=== PATIENT | female | born 1955 | race Caucasian/White ===

== ENCOUNTER 2020-03-02 17:46 | Outpatient (CLI) | payer BC, SELFPAY ==
--- NOTE | ~2020-03-02 | MM_ITS ---
EXAMINATION: MM screening michael BI w semaj HISTORY: Screening mammogram TECHNIQUE: Craniocaudal and mediolateral oblique 3-D tomosynthesis images were obtained and synthetic 2-D images were generated. CAD analysis was submitted and interpreted. COMPARISON: 09/17/2018, 09/12/2017, 09/04/2016 bilateral digital screening mammogram examinations BREAST PARENCHYMAL COMPOSITION: There are scattered areas of fibroglandular density. FINDINGS: 5 mm low-density circumscribed opacity is noted anteriorly in the upper outer left breast ( craniocaudal Tomosynthesis image 29/44; MLO Tomosynthesis image 17/45). Diagnostic left mammogram and targeted upper outer quadrant left breast ultrasound examination is recommended. Otherwise there is no evidence of suspicious mass, calcification, or architectural distortion to sugg est malignancy in either breast. There has been no suspicious interval change. IMPRESSION: 1. 5 mm mass in the upper outer quadrant of left breast anteriorly. 2. Diagnostic left mammogram and left upper outer quadrant breast ultrasound examination are recommen ded BI-RADS Category 0: Incomplete: Needs additional imaging evaluation. Reviewed, dictated and finalized at location A. IMPRESSION: 1. 5 mm mass in the upper outer quadrant of left breast anteriorly. 2. Diagnostic left mammogram and left upper outer quadrant breast ultrasound ex amination are recommended BI-RADS Category 0: Incomplete: Needs additional imaging evaluation.
== END 2020-03-02 17:47 | disposition home or self-care (01) ==
LOC: ANHIMG 17:49
PROVIDERS: PCP Family Medicine Sports Medicine; Visit Provider Obstetrics & Gynecology
DX: Z12.31 Encounter for screening mammogram for malignant neoplasm of breast (principal)
CPT/HCPCS: 77063; 77067

== ENCOUNTER 2020-03-12 02:35 | Outpatient (CLI) | payer BC, SELFPAY ==
[2020-03-12 18:02] LABS: SARS-CoV-2 RNA PCR Negative
== END 2020-03-12 02:36 | disposition home or self-care (01) ==
LOC: ANHCOVIDDT 02:35
PROVIDERS: PCP Family Medicine Sports Medicine; Visit Provider Internal Medicine Gastroenterology
DX: Z01.812 Encounter for preprocedural laboratory examination (principal); Z20.828 Contact with and (suspected) exposure to other viral communicable diseases
CPT/HCPCS: 87635; C9803; U0003

== ENCOUNTER 2020-03-15 01:47 | Day surgery (SDC) | payer BC, SELFPAY ==
[2020-03-04 10:33] VITALS: BMI 23.6
[2020-03-15 07:14] VITALS: BP 102/67; PULSE 63; RESP 14; TEMP 36.5; O2SAT 100; BMI 23.6
[2020-03-15] MEDS: LACTATED RINGERS 1,000 ML 150 ML IV CONT (07:23)
--- NOTE | 2020-03-15 07:59 | WPDANESEPPF ---
Anes - Initial Pre Proc Eval Procedure: Operation Date: 03/15/20 08:30 Proposed Procedures p Colonoscopy - Broderick Méndez MD Date/Time: 03/15/20 07:59 Surgeon: Broderick Méndez MD Pre Op Diagnosis: Change In Bowel Habits Patient Data Age: 64 Gender: F Height: 1.52 m Weight: 54.8 kg Last Vital Signs Temp 36.5 C 03/15/20 07:14 Pulse 63 03/15/20 07:14 Resp 14 03/15/20 07:14 BP 102/67 03/15/20 07:14 Pulse Ox 100 03/15/20 07:14 Allergies Allergy/AdvReac Type Severity Reaction Status Date / Time morphine Allergy Unknown Nausea and Verified 03/15/20 07:05 Vomiting sulfanilamide Allergy Unknown Rash Verified 03/15/20 07:05 Penicillins Allergy Rash Verified 03/15/20 07:05 Sulfa (Sulfonamide AdvReac Unknown NAUSEA/VOMI Verified 03/15/20 07:05 Antibiotics) TING Home Medications Medication Instructions Recorded Confirmed Type Bifidobacterium infantis [Align] 4 mg PO DAILY 03/04/20 03/15/20 History fluticasone propionate 50 mcg INTRANASAL DAILY PRN 03/04/20 03/15/20 History guar gum [Benefiber (guar gum)] 1 tbsp PO DAILY 03/04/20 03/15/20 History multivitamin 1 tablet PO DAILY 03/04/20 03/15/20 History Patient hx anesthesia problems: none Family hx anesthesia problems: none PMFSH Family History Family History (Updated 12/10/15 @ 23:19 by DOCTOR UNKNOWN) Father Hypertension Family history of Parkinson's disease Mother Carcinoma of colon Family history of diabetes mellitus in first degree relative Family history of malignant neoplasm of uterus Sibling Family history of heart disease in male family member before age 55 Other Family history of allergic disorder Social History Social History Smoking packs per day: 1.5 Smoking cigarettes per day: 30.0 Years smoked: 30 Smoking pack-years: 45.00 Smoking status: Former smoker Tobacco type: cigarettes Alcohol intake: current Drinks per week: 7 Living arrangements: alone Gender identity (if verbalized by the patient): Female Spiritual care concerns: No Anes - Eval Final PreProcedure Day of Procedure 03/15/20 07:59 Patient weight: normal Heart: regular rate and rhythm Lungs: clear to auscultation and normal air movement Airway: Mallampati scale Neurological: alert and oriented Last oral intake: >/= 8 hours ASA classification: I Emergent: no Anesthetic plan: proceed Anesthesia type and monitoring: general GIVS Informed Consent: The patient's anesthetic plan and its attendant risks and benefits were discussed with the patient/family/POA. Questions were solicited and answers provided to the satisfaction of the patient/family/POA.
--- NOTE | 2020-03-15 08:08 | WPDGICN ---
Assessment and Plan Assessment and plan (1) Encounter for diagnostic colonoscopy due to change in bowel habits: Code(s): R19.4 - Change in bowel habit Status: Acute (2) Constipation: Code(s): K59.00 - Constipation, unspecified Status: Acute Assessment and Plan: Constipation appears to be on the basis of irritable bowel syndrome. Because of recent change in bowel habits colonoscopy will be performed. High fiber supplements such as Benefiber is encouraged. She may need to take MiraLax or milk of magnesia as needed to assist with bowel habits. Further recommendations will be given after endoscopy. GI Consult Note Consult date/time: 03/15/20 08:08 HPI: Iliana Gallardo is a 64 year old female I am asked to see at the request of Dr Garcia. patient reports a change in bowel habits over the last 2 months with increasing constipation. Bowel habits have changed so that they are less than 2 times a week. She previously has taken Benefiber and align probiotic with which helped her bowel habits. These have been of no benefit recently. She occasionally will supplement this with MiraLax as needed. Family history is noncontributory. Patient denies any blood in her stools. Her last colonoscopy was in 2011. Review of Systems Review of Systems: All systems reviewed & are unremarkable except as noted in HPI and below PMFSH Family History Family History (Updated 12/10/15 @ 23:19 by DOCTOR UNKNOWN) Father Hypertension Family history of Parkinson's disease Mother Carcinoma of colon Family history of diabetes mellitus in first degree relative Family history of malignant neoplasm of uterus Sibling Family history of heart disease in male family member before age 55 Other Family history of allergic disorder Social History Social History Smoking packs per day: 1.5 Smoking cigarettes per day: 30.0 Years smoked: 30 Smoking pack-years: 45.00 Smoking status: Former smoker Tobacco type: cigarettes Alcohol intake: current Drinks per week: 7 Living arrangements: alone Gender identity (if verbalized by the patient): Female Spiritual care concerns: No Meds Home Medications and Allergies Home Medications Medication Instructions Recorded Confirmed Type Bifidobacterium infantis [Align] 4 mg PO DAILY 03/04/20 03/15/20 History fluticasone propionate 50 mcg INTRANASAL DAILY PRN 03/04/20 03/15/20 History guar gum [Benefiber (guar gum)] 1 tbsp PO DAILY 03/04/20 03/15/20 History multivitamin 1 tablet PO DAILY 03/04/20 03/15/20 History Allergies Allergy/AdvReac Type Severity Reaction Status Date / Time morphine Allergy Unknown Nausea and Verified 03/15/20 07:05 Vomiting sulfanilamide Allergy Unknown Rash Verified 03/15/20 07:05 Penicillins Allergy Rash Verified 03/15/20 07:05 Sulfa (Sulfonamide AdvReac Unknown NAUSEA/VOMI Verified 03/15/20 07:05 Antibiotics) TING Vital Signs Vital Signs - 24 hr 03/15/20 07:14 Temperature 97.7 F Pulse Rate 63 Respiratory Rate 14 Blood Pressure 102/67 Pulse Oximetry 100 Exam Narrative: Exam Narrative: Physical exam reveals patient to be alert. Vital signs stable. HEENT exam unremarkable. Lungs are clear to auscultation and percussion. Heart is without murmur or extra sounds. Abdominal exam bowel sounds are present soft nontender with no hepatosplenomegaly. Digital external rectal exam is normal.
[2020-03-15 08:58] VITALS: BP 89/55; PULSE 71; RESP 20; O2SAT 97
[2020-03-15 09:08] VITALS: BP 91/59; PULSE 71; RESP 22; O2SAT 97
[2020-03-15 09:18] VITALS: BP 95/55; PULSE 63; RESP 16; O2SAT 95
== END 2020-03-15 09:27 | disposition home or self-care (01) ==
PROVIDERS: PCP Family Medicine Sports Medicine; Visit Provider Internal Medicine Gastroenterology
PROC: 0DJD8ZZ Inspection of Lower Intestinal Tract, Via Natural or Artificial Opening Endoscopic (ICD-10-PCS; CPT 45378; principal; 2020-03-15 08:30)
DX: K59.00 Constipation, unspecified (principal); K64.8 Other hemorrhoids; Z87.891 Personal history of nicotine dependence
CPT/HCPCS: 45378; J2704; J7120

== ENCOUNTER 2020-03-22 11:47 | Outpatient (CLI) | payer BC, SELFPAY ==
--- NOTE | ~2020-03-22 | MMUS_ITS ---
EXAMINATION: MM diagnostic mammo unilat LT, US breast LT limited HISTORY: Left breast mass TECHNIQUE: Additional 3-D tomosynthesis images of the left breast were performed and synthetic 2-D im ages were generated. CAD analysis was submitted and interpreted. High resolution limited left breast ultrasound was performed. COMPARISON: 03/02/2020, 09/17/2018, 09/12/2017, 09/04/2016 FINDINGS: MAMMOGRAPHIC FINDINGS: With spot compression, the 6 mm oval, obscured, equal density left breast mass at the 1:00 location 4 cm from the nipple described on recent screening mammogram has an appearance similar to prior mammog donnie. No suspicious calcification or architectural distortion are identified. ULTRASOUND: There is a 6 mm cyst at the 12:00 location 5 cm from the nipple corresponding to the mammographic fin ding in question. Smaller complex cysts are also noted in the upper outer quadrant of the breast. IMPRESSION: 1. No mammographic or sonographic evidence of malignancy. 2. Recommend routine screening mammography in one year. BI-RADS Category 2: Benign finding(s). Reviewed, dictated and finalized at location A. SION CONTROLLER IMPRESSION: 1. No mammographic or sonographic evidence of malignancy. 2. Recommend routine screening mammography in one year. BI-RADS Category 2: Benign finding(s).
== END 2020-03-22 11:48 | disposition home or self-care (01) ==
PROVIDERS: PCP Family Medicine Sports Medicine; Visit Provider Obstetrics & Gynecology
DX: R92.8 Other abnormal and inconclusive findings on diagnostic imaging of breast (principal)
CPT/HCPCS: 76642; 77065

== ENCOUNTER 2021-03-16 13:35 | Outpatient (CLI) | payer BC, SELFPAY ==
--- NOTE | ~2021-03-16 | MM_ITS ---
EXAMINATION: MM screening michael BI w semaj HISTORY: Screening TECHNIQUE: Craniocaudal and mediolateral oblique 3-D tomosynthesis images were obtained and synthetic 2-D images were generated. CAD analysis was submitted and interpreted. COMPARISON: Comparison to multiple prior studies sequentially, with oldest reviewed study dated 08/23. BREAST PARENCHYMAL COMPOSITION: There are scattered areas of fibroglandular density. FINDINGS: There is no evidence of suspicious mass, calcification, or architectural distortion to sugg est malignancy in either breast. There has been no suspicious interval change. IMPRESSION: 1. No mammographic evidence of malignancy. 2. Recommend routine screening mammography in one year. BI-RADS Category 1: Negative Reviewed, dictated and finalized at location A.
== END 2021-03-16 13:36 | disposition home or self-care (01) ==
LOC: ANHIMG 13:36
PROVIDERS: PCP Family Medicine Sports Medicine; Visit Provider Obstetrics & Gynecology
DX: Z12.31 Encounter for screening mammogram for malignant neoplasm of breast (principal)
CPT/HCPCS: 77063; 77067

== ENCOUNTER 2022-05-11 15:32 | Outpatient (CLI) | payer BC, SELFPAY ==
--- NOTE | ~2022-05-11 | MM_ITS ---
EXAMINATION: MM screening michael BI w semaj HISTORY: Screening mammogram TECHNIQUE: Craniocaudal and mediolateral oblique 3-D tomosynthesis images were obtained and synthetic 2-D images were generated. CAD analysis was submitted and interpreted. COMPARISON: 04/12/2021 bilateral screening mammogram 04/01/2020 diagnostic left mammogram and limited left breast ultrasound examination BREAST PARENCHYMAL COMPOSITION: There are scattered areas of fibroglandular density. FINDINGS: There is no evidence of suspicious mass, calcification, or architectural distortion to sugg est malignancy in either breast. There has been no suspicious interval change. IMPRESSION: 1. No mammographic evidence of malignancy. 2. Recommend routine screening mammography in one year. BI-RADS Category 1: Negative Reviewed, dictated and finalized at location A. MOCOUPLE TESTER
== END 2022-05-11 15:33 | disposition home or self-care (01) ==
LOC: ANHIMG 15:33
PROVIDERS: PCP Family Medicine Sports Medicine; Visit Provider Obstetrics & Gynecology
DX: Z12.31 Encounter for screening mammogram for malignant neoplasm of breast (principal)
CPT/HCPCS: 77063; 77067

== ENCOUNTER 2023-07-11 16:25 | Outpatient (CLI) | payer MEDICARE, OTHER, SELFPAY ==
--- NOTE | ~2023-07-11 | MM_ITS ---
EXAMINATION: MM screening michael BI w semaj HISTORY: Screening TECHNIQUE: Craniocaudal and mediolateral oblique 3-D tomosynthesis images were obtained and synthetic 2-D images were generated. CAD analysis was submitted and interpreted. COMPARISON: Comparison to multiple prior studies sequentially, with oldest reviewed study dated 06/2017. BREAST PARENCHYMAL COMPOSITION: Not dense: There are scattered areas of fibroglandular density. FINDINGS: There is no evidence of suspicious mass, calcification, or architectural distortion to sugg est malignancy in either breast. There has been no suspicious interval change. IMPRESSION: 1. No mammographic evidence of malignancy. 2. Recommend routine screening mammography in one year. BI-RADS Category 1: Negative Reviewed, dictated and finalized at location A. ESCENT COORDINATOR
== END 2023-07-11 16:26 | disposition home or self-care (01) ==
LOC: ANHIMG 16:43
PROVIDERS: PCP Family Medicine; Visit Provider Obstetrics & Gynecology
DX: Z12.31 Encounter for screening mammogram for malignant neoplasm of breast (principal)
CPT/HCPCS: 77063; 77067

== ENCOUNTER 2023-10-02 07:52 | Outpatient (CLI) | payer MEDICARE, OTHER, SELFPAY ==
--- NOTE | ~2023-10-02 | DEXA_ITS ---
Bone Density Report Name: ANUJ JORDAN Age: 67 Sex: Female Ethnicity: White Date of : 1955 Indication: postmenopausal; screening for osteoporosis; hysterectomy; Referring Provider: JUAN VENTURA Study: Bone densitometry was performed. Exam Date: October 02, 2023 Accession number: [id number] Bone Density: Region BMD T-score Z-score Classification AP Spine(L1-L4) 0.824 -2.0 -0.2 Osteopenia Femoral Neck (Left) 0.567 -2.5 -1.0 Osteoporosis Total Hip (Left) 0.739 -1.7 -0.4 Osteopenia Femoral Neck (Right) 0.563 -2.6 -1.0 Osteoporosis Total Hip (Right) 0.700 -2.0 -0.7 Osteopenia Total Hip Mean 0.720 -1.9 -0.6 Osteopenia World Health Organization criteria for BMD impression classify patients as: Normal (T-score at or above -1.0), Osteopenia (T-score between -1.0 and -2.5), or Osteoporosis (T-score at or below -2.5). 10-year Fracture Risk: FRAX not reported because: Some T-score for Spine Total or Hip Total or Femoral Neck at or below -2.5 Treated for osteoporosis Clinical Information Provided by Patient: Is being treated for osteoporosis Has used the following medications: Fosamax (i.e. alendronate), Vitamin D, Calcium Has the following medical conditions: Hysterectomy Patient maximum height was 61.5 No regular weight bearing exercise Drinks caffeinated beverages Onset of menses at age 15 Number of children 2 Impression: The patient has osteoporosis, based on the Right Femoral Neck T-score. Discussion: It is important to ask patients whether they are taking their medications and to encourage continued and appropriate compliance with their osteoporosis therapies to reduce fracture risk. It is also important to review their risk factors and encourage appropriate calcium and vitamin D intakes, exercise, fall prevention and other lifestyle measures. Follow-Up: Consider a repeat BMD and Vertebral Fracture Assessment (VFA) exam in 2 years or sooner if medically necessary, to reassess this patient's status. Reported by: TERENCE on 10/02/2023 8:27:00 AM. Reviewed, dictated and finalized at location AEarl ZAVALA
== END 2023-10-02 07:53 | disposition home or self-care (01) ==
PROVIDERS: PCP Family Medicine; Visit Provider Obstetrics & Gynecology
DX: Z13.820 Encounter for screening for osteoporosis (principal); M81.0 Age-related osteoporosis without current pathological fracture; Z78.0 Asymptomatic menopausal state
CPT/HCPCS: 77080

== ENCOUNTER 2024-07-14 15:17 | Outpatient (CLI) | payer MEDICARE, OTHER, SELFPAY | END 2024-07-14 15:18 | disposition home or self-care (01) | LOC: ANHIMG 15:22 | PROVIDERS: PCP Family Medicine; Visit Provider Obstetrics & Gynecology | DX: Z12.31 Encounter for screening mammogram for malignant neoplasm of breast (principal) | CPT/HCPCS: 77063; 77067 ==

== ENCOUNTER 2024-09-04 05:41 | Emergency (ER) | payer MEDICARE, OTHER, SELFPAY ==
--- NOTE | ~2024-09-04 | XR_ITS ---
AP view of the pelvis Clinical history: Pain Findings: No acute fracture or dislocation is seen. Osseous alignment is anatomic. Bilateral hip and SI joint spaces are preserved. Soft tissues are unremarkable. Impression: No significant abnormality is seen. Reviewed, dictated and finalized at location M. Impression: No significant abnormality is seen.
--- NOTE | ~2024-09-04 | CT_ITS ---
Noncontrast CT scan of the lumbar spine CLINICAL HISTORY: Back pain TECHNIQUE: Axial noncontrast imaging of the lumbar spine was performed. Sagittal and coronal reformat alissa images were constructed. Dose reduction technique was used on this scan by utilizing automated ex posure control and iterative reconstruction technique. The dose-length product (DLP) was 519.11 mGy-c m. FINDINGS: No acute fracture or sublocation identified. Vertebral bodies maintain normal height and li ne. At L1-L2, there is no disc bulge. There is minimal facet arthropathy. No central canal stenosis or de finite neural foraminal narrowing. At L2-L3, there is no disc bulge or herniation. No spinal canal stenosis or definite neural foraminal narrowing. At L3-L4, there is no disc bulge or herniation. No spinal canal stenosis or neural foraminal narrowin g. At L4-L5, there is minimal disc bulge with moderate facet arthropathy. No central canal stenosis or n eural foraminal narrowing. At L5-S1, there is no disc bulge or herniation. No spinal canal stenosis or definite neural foraminal narrowing. Paravertebral soft tissues are unremarkable. Impression: No acute abnormality. Minimal degenerative change. Reviewed, dictated and finalized at location . Impression: No acute abnormality. Minimal degenerative change.
--- OUTSIDE RECORDS SUMMARY | 2024-09-04 05:44 | XMS_ITS | Clinical Summary ---
Author Organization [facility] Address [address] [place] [address] Care Team Providers Care Contact Worker Name Role Phone Jamey Reid MD Primary Care Provider [phone] Source Comments [facility],non-owned Affiliates and Associated Physician Practices is amultiple site organization consisting of ambulatory clinics and hospital sitesin [place], [place], [place] and [place]. This disclosure is being madepursuant to the Care Everywhere program and may not contain all information available regarding this patient. 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 Gender Identity Not on file Sexual Orientation Not on file Plan of Treatment Health Maintenance Due Date Last Done Comments BONE DENSITY TESTING 1955 COLOGUARD (AGES 45-75) - COL ON CA SCREENING 1955 COLON MONITORING 1955 COLONOSCOPY - COLON CA SCREENING 1955 CT COLONOGRAPHY - COLON CA SCREENING 1955 Colorectal Cancer Screening 1955 FIT - COLON CA SCREENING 1955 FLEX SIG - COLON CA SCREENING 1955 LIPID TESTING 1955 MAMMOGRAM 1955 MEDICARE AWV 12 MONTHS 1955 HEPATITIS C SCREENING 10/01/1975 DTAP/TDAP/TD VACCINES (1 - Tdap) 1976 PNEUMOCOCCAL VACCINE 50+ (1 of 1 - PCV) 10/06/2007 ZOSTER VACCINE (1 of 2) 10/06/2007 COVID-19 VACCINE ( - 2023-2 5 season) 2024 DEPRESSION SCREENING 05/14/2024 INFLUENZA VACCINE (Season Ended) 2025 Respiratory Syncytial Virus (RSV) Vaccine Pt: or over 60 yrs (1 - 1-dose 75+ series) 2032 HEPATITIS B VACCINE Aged Out No longe r eligible based on patient's age to complete this topic HIB VACCINE Aged Out No longer eligi ble based on patient's age to complete this topic HPV VACCINE Aged Out No longer eligi ble based on patient's age to complete this topic MENINGOCOCCAL (Group B) VACC INE SHARED DECISION-MAKING Aged Out No longer eligibl e based on patient's age to complete this topic MENINGOCOCCAL GROUPS A/C/Y/W VACCINE Aged Out No longer eligible b ased on patient's age to complete this topic Insurance MEDICARE [facility] [place] [id number] Care Teams Contact Worker Relationship Specialty Start Date End Date Jamey Reid MD [address] [place] [id number] PCP - General 03/23/21
--- OUTSIDE RECORDS SUMMARY | 2024-09-04 05:44 | XMS_ITS | Data Portability ---
Author Organization [facility], Main Office Address [address] [place] [address] Care Team Providers Care Rn Night Name Role Phone JENNIFER BENOIT Primary Care Provider Assessment No assessment recorded. Plan of Treatment Reminders Order Date Submit Date Provider Last Modified By Organization Details Last Modified Time Details Appointments None record ed. Lab None record ed. Referral None record ed. Procedures None record ed. Surgeries None record ed. Imaging None record ed. Medication Orders None record ed. Patient TargetsNo targets recorded. Patient Instructions Encounter Date Encounter Id Patient Instructions Last Modified By Organization Details Last Modified Time 02/07/2024 [id number] this will be excisionally biopsied Not available 02/07/2024 11:08:29 03/10/2024 [id number] she will return as needed Not available 03/10/2024 11:19:27 Reason for Referral None Reported. Results Created Date Observation Date Name Description Value Unit Range Abnormal Flag Note LastModifiedBy Organization Detail LastModifiedTime Result Notes None recorded. 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 Procedures Surgical History Date Name Laterality Status Provider Name and Address Organization Details Recorded Time cholecystectomy completed Marguerite Daley RN [facility] 02/07/2024 10:52:38 Imaging Results None recorded. Procedure Notes None recorded. Medical Equipment None Reported. Allergies Allergen ID Allergen Name Allergen Category Reaction Reaction Severity Criticality Documentation Date Start Date Code Code System Note Provider Name and Address Organization Details Recorded Time 19746 morphine medicatio n Not available Not available Not available 02/07/2024 7052 [facility] 10[facility]49:48 70780 Product containin g penicilli n (product) medicatio n Not available Not available Not available 02/07/2024 47548 8001 SN[facility]ED [facility] 10:49:57 23699 Substance with sulfonami de structure and antibacte rial mechanism of action (substanc e) medicatio n Not available Not available Not available 02/07/2024 58600 8003 SN[facility]ED [facility] 10:50:01 Medications Name Sig Start Date Stop Date Status Note LastModified by Organization Details LastModified Time atorvastatin 20 mg tablet 02/06 completed Not Available Not Available Not Available atorvastatin 10 mg tablet active Not Available Not Available Not Available fluconazole 150 mg tablet 02/06 completed Not Available Not Available Not Available famotidine 40 mg tablet active Not Available Not Available No t Available alendronate 70 mg tablet active Not Available Not Available Not Available tramadol 50 mg tablet Take 1 tablet every 4-6 hours by oral route. active Not Available Not Available No t Available meloxicam 7.5 mg tablet 02/06 completed Not Available Not Available Not Available clotrimazole- betamethasone 1 %-0.05 % topical cream 02/06 completed Not Available Not Available Not Available fluticasone propionate 50 mcg/actuation nasal spray,suspens ion active Not Available Not Available Not Available nitrofurantoi n monohydrate/m acrocrystals 100 mg capsule 02/06 completed Not Available Not Available Not Available Pepcid active Not Available Not Availa ble Not Available [place] 3 active Not Available Not Avail able Not Available Multi Vitamin active Not Available Not Available Not Available Ibsrela active Not Available Not Avail able Not Available Vitals Date Recorded Body weight Body mass index (BMI) Body height Body temperature Provider Name and Address Organization Details Last Updated DateTime 02/07/2024 53330.65 g 22.4 kg/m2 155.58 cm 97.9 [degF] Marguerite Daley RN [facility] 02/07/2024 10:53:01 Date Recorded Body height Body mass index (BMI) Body weight Body temperature Provider Name and Address Organization Details Last Updated DateTime 03/10/2024 155.58 cm 21.8 kg/m2 70987.43 g 97.6 [degF] Marguerite Daley RN [facility] 03/10/2024 11:01:20 Social History Question Answer Notes LastModified by Organizat ion Details LastModified Time Tobacco Smoking Status Former Smoker Marguerite Daley RN [facility], [facility] 02/07/2024 10:52:15 What Is Your Level Of Alcohol Consumption? Occasional [email or web address] Information not available 02/07/2024 Sex: Unknown Functional Status None recorded. Mental Status None recorded. Family History Relationship Description Onset Age of this Age Resolved Age Notes LastModified by Organization Details LastModified Time Father No current problems or disability [email or web address] Not available 02/06 10:52:01 Mother No current problems or disability [email or web address] Not available 02/06 10:52:01 Notes:NO ENT Medical History No medical history recorded. Gynecological HistoryNo gynecological history recorded. Obstetrics History GPAL:G 0 P 0 0 0 0 Past Encounters Encounter ID Performer Location Encounter Start Date Encounter Closed Date Diagnosis/Indication Diagnosis SNOMED-CT Code Diagnosis ICD10 Code Diagnosis Note [id number] Elliott Bain MD [facility] [place] [address] [place] [address] 02/07/2024 10:36:52 02/07/2024 14:42:21 Leukoplakia of oral mucosa 995541293 K13.21 [id number] Elliott Bain MD [facility] [place] [address] [place] [address] 03/10/2024 10:55:59 03/10/2024 11:34:13 Oral lesion 6038379857 107 K13.70 Health Concerns Section Related Observation LastModified by Organization Detai ls LastModified Time None Recorded Concern Status LastModified by Organization Details LastModified Time None Recorded Advance Directives Directive None Recorded Payers Encounter Date Sequence Insurance Name Policy Number Policy Brito Covered Member ID Brito Member ID Guarantor Name 02/07/2024 1 [place] Iliana R Gallardo [id number] Iliana Gallardo 02/07/2024 2 [employer] (MEDICARE SUPPLEMENT) Iliana R Gallardo [id number] Iliana Gallardo 03/10/2024 1 [place] Iliana R Gallardo [id number] Iliana Gallardo 03/10/2024 2 [employer] (MEDICARE SUPPLEMENT) Iliana R Gallardo [id number] Iliana Gallardo Notes Date Note Type Note Provider Name and Address Organization Details Recorded Time 02/07/2024 text/html 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 Elliott Bain MD [address], [place], [address], [facility] 02/07/2024 11:08:45 03/10/2024 text/html she is doing wel l following tonsil biopsy. This turned out to be hyperkeratosis and was benign Elliott Bain MD [address], [place], [address], [facility] 03/10/2024 11:19:41 OBGyn Episode No OBEpisode recorded.
--- OUTSIDE RECORDS SUMMARY | 2024-09-04 05:44 | XMS_ITS ---
Author Organization [employer] [facility] Address [address] [place] [address] [address]. [address] [place] [address] Care Team Providers Care Oil Expeller Operator Name Role Phone Jamey Reid MD Primary Care Provider UnavailStef Davidson Unavailable [phone] Stephanie Burns Unavailable [phone] REASON FOR VISIT Ibsrela Encounters Encounter Location Date Provider Diagnosis [facility], [address] [place] [address] 04/07/2024 Stephanie Burns Plan Of Treatment No Information Progress Notes * Iliana GALLARDO RDOB:1955 (68 yo F)Acc No.[id number]:04/07/2024 Patient: Iliana SUNG Kodi :1955 A ge:68 Y S ex:Female Address:[address] [place] [address], [address] * true * Date: Generated for Printi ng/Faxing/eTransmitting on: 0 09/04/2024 05:44 AM CDT
--- OUTSIDE RECORDS SUMMARY | 2024-09-04 05:44 | XMS_ITS ---
Author Organization [employer] Address [address] [facility] [address] [place] [address] Care Team Providers Care Nail Kegger Name Role Phone Jamey Reid MD Primary Care Provider Stef Peñaloza Unavailable [phone] REASON FOR VISIT Reflux K21.9 5 1 118 Problems Problem Type SNOMED Code ICD Code Onset Dates Problem Status W/U Status Risk Notes Problem 763697489 Chronic GERD (K21.9) Active confirmed Encounters Encounter Location Date Provider Diagnosis [address] [place] [address] 05/22/2024 Stef Hagan Chronic GERD K21.9 Assessments Encounter Date Diagnosis (ICD Code) Assessment Notes Treatment Notes Treatment Clinical Notes Section Notes 05/22/2024 Chronic GERD (ICD-10 - K21.9) Plan Of Treatment No Information Progress Notes * Iliana GALLARDO RDOB:1955 (68 yo F)Acc No.[id number]:05/22/2024 Patient: Iliana SUNG Provider: Ange Hagan D.O. :1955 A ge:68 Y S ex:Female Date:05/22/2024 Address:[address] [place], [place] [id number] Pcp:Jamey Reid MD Subjective: * Chief Complaints: * R eflux K21.9 5 1 118 * Medical History: * Surgical History: * Hospitalization/Major Diagno stic Procedure: * Medications: Objective: * Vitals: Assessment: * Assessment: 1. C hronic GERD - K21.9 (Primary) Plan: * Treatment: * Procedure Codes: 4 3235 UPPR GI ENDOSCOPY, DIAGNOSIS * Images: * SERVER DBA Sign off status: Completed true * Provider: Ange Hagan D.O. Date: 0 05/22/2024 Generated for Teressa garcía/Aren/Veronicaitting on: 0 09/04/2024 05:44 AM CDT
--- OUTSIDE RECORDS SUMMARY | 2024-09-04 05:44 | XMS_ITS | Patient Health Record ---
Author Organization [employer] Address [address] [place] [address] Care Team Providers Care Senior Java Ui Developer Name Role Phone Jamey Reid MD Primary Care Provider UnavailStef Davidson Unavailable [phone] Stephanie Burns Unavailable [phone] Allergies Allergen (clinical drug ingredient) Drug/Non Drug Allergy documented on EMR Reaction Allergy Type Onset Date Status Substance with sulfonamide structure and antibacterial mechanism of action (substance) Sulfa Antibiotics Rash Drug Allergy Active morphine Morphine Stomach Upset Drug Allergy Act danis Penicillin Rash Drug Allergy Active Reason For Referral No Information Medications Medication SIG (Take, Route, Frequency, Duration) Notes Start Date End Date Status Align Active Alendronate Sodium A ctive OTC/Vitamins Flonase, MVI, Calcium, Eye Restore, [place] D3, Active Ibsrela 50 MG 1 tablet Orally once a day for 90 days 01/10/2024 Active Famotidine 40 MG 1 tablet Orally Once a day for 90 days 01/10/2024 Active Benefiber Active Lipitor Active Immunizations Vaccine Route Administration Date Status Comme nts Influenza Vaccination Unknown 02/22/2022 Administered Influenza Vaccination Unknown 02/05/2023 Administered Influenza Vaccination Unknown 02/08/2024 Administered Pneumococcal polysaccharide PPV23 Unknown 02/08/2024 Ad ministered Social History Tobacco Use: Social History Observation Description Date Details (start date - stop date) Former Smoker NA - NA Tobacco Use/Smoking Question Answer Notes Are you a former smoker How long has it been since you last smoked? > 10 years Problems Problem Type SNOMED Code ICD Code Onset Dates Problem Status W/U Status Risk Notes Problem [id number] Chronic GERD (K21.9) Active confirmed Problem Acid reflux ([id number]) Acid reflux (K21.9) Active confirmed On famotidine 40 mg/d, 1-2x/w has mild break through symptoms of acid reflux. Symptoms subside without intervention. Unsure if symptoms are secondary to diet. Vital Signs Height 61 in 03/17/2024 Weight 117 lbs 03/17/2024 BMI 22.1 kg/m2 03/17/2024 Encounters Encounter Location Date Provider Diagnosis [facility], [address] [place] [address] 01/10/2024 Stephanie Burns Chronic constipation K59.09 ; Mucous in stools R19.5 ; Acid reflux K21.9 and Colon cancer screening Z12.11 [facility], [address] [place] [address] 03/17/2024 Stephanie Burns Chronic constipation K59.09 ; Acid reflux K21.9 ; Colon cancer screening Z12.11 and Localized swelling, mass and lump, neck R22.1 [facility] [address] [place] [address] 05/22/2024 Stef Danya Chronic GERD K21.9 [facility], [address] [place] [address] 01/07/2024 [facility], [address] [place] [address] 01/24/2024 Stephanie Burns Chronic constipation K59.09 [facility], [address] [place] [address] 01/28/2024 Stephanie Burns [facility], [address] [place] [address] 02/13/2024 Stephanie Burns [facility], [address] [place] [address] 03/17/2024 Stephanie Burns [facility], [address] [place] [address] 04/07/2024 Stephanie Burns [facility], [address] [place] [address] 04/07/2024 Stephanie Burns Assessments Encounter Date Diagnosis (ICD Code) Assessment Notes Treatment Notes Treatment Clinical Notes Section Notes 01/10/2024 Chronic constipation (ICD-10 - K59.09) Samples given of Ibsrela 50 mg/BID. If she does not have relief on Ibsrela will switch to Motegrity. She will stop Dulcolax weekly while on samples. She will continue on Benefiber and align daily. She will follow up with our office with a symptom update after taking Ibsrela for at least 10 days. If she finds relief on Ibsrela, a prescription will be sent to pharmacy on file. Reviewed Ibsrela medication profile. CHRONIC CONSTIPATION associated with MUCOUS IN STOOLS: H/O chronic constipation; in the past has tried/failed MiraLAX and Linzess 290 mcg/d. In November 2022 given samples of Trulance; took for 3 weeks and had no relief. Requested samples of Motegrity however our office was out. Over the past year has treated constipation with weekly Dulcolax. On Doculax is having 1-2 hard pebble-like to formed BMs/w associated with intermittent clear to white mucus mixed with stools. Denies hematochezia or melena, abdominal pain or cramping and denies bloating. ACID REFLUX: Following her last dose of Fosamax last Sunday01/04/24, been on Fosamax developed midepigastric burning radiating to her throat associated with regurgitation of acid causing a sour taste in her mouth. Took Tums once, had some relief however symptoms continue. Has She is on Fosamax for osteoporosis for over a year and developed possible side effects last week. COLON CANCER SCREENING: Believes last colonoscopy was unremarkable in 2019 and recommended repeating in 5 years. At time of visit report is not available to review. Iliana denies a family history of IBD, colon cancer or colon polyps. 01/24/2024 Chronic constipation (ICD-10 - K59.09) 03/17/2024 Chronic constipation (ICD-10 - K59.09) On Ibsrela 50 mg/d having a formed bowel movement every day. By day 5 BMs become slightly loose liquid and with holding Ibsrela for one day symptoms subside. Denies mucus or blood in her stool, abdominal pain, cramping or bloating. On Ibsrela BID had diarrhea and abdominal cramping. Tried/failed Miralax and Linzess 290 mcg/d. Will continue on Ibsrela 50 mg/d along with Benefiber and align daily. 03/17/2024 Acid reflux (ICD-10 - K21.9) On famotidine 40 mg/d, 1-2x/w has mild break through symptoms of acid reflux. Symptoms subside without intervention. Unsure if symptoms are secondary to diet. Will continue on Pepcid 40 mg at bedtime. If breakthrough symptoms continue she will follow up with our office and famotidine dose will be increased and will proceed with an EGD. She may take OTC Tums for breakthrough symptom relief. At this time she would like to hold off switching to a PPI due to having osteoporosis. Reviewed GERD diet and lifestyle modifications. 05/22/2024 Chronic GERD (ICD-10 - K21.9) 03/17/2024 Colon cancer screening (ICD-10 - Z12.11) Believes last colonoscopy was unremarkable in 2019 and recommended repeating in 5 years. At time of visit report is not available to review. Iliana denies a family history of IBD, colon cancer or colon polyps. Will reach out to her PCP for her previous colonoscopy report to be sent to our office for review and her records. If recommended to follow-up in 5 years she will be due for her colonoscopy in fall 2024. 01/10/2024 Mucous in stools (ICD-10 - R19.5) CHRONIC CONSTIPATION associated with MUCOUS IN STOOLS: H/O chronic constipation; in the past has tried/failed MiraLAX and Linzess 290 mcg/d. In November 2022 given samples of Trulance; took for 3 weeks and had no relief. Requested samples of Motegrity however our office was out. Over the past year has treated constipation with weekly Dulcolax. On Doculax is having 1-2 hard pebble-like to formed BMs/w associated with intermittent clear to white mucus mixed with stools. Denies hematochezia or melena, abdominal pain or cramping and denies bloating. ACID REFLUX: Following her last dose of Fosamax last Sunday01/04/24, been on Fosamax developed midepigastric burning radiating to her throat associated with regurgitation of acid causing a sour taste in her mouth. Took Tums once, had some relief however symptoms continue. Has She is on Fosamax for osteoporosis for over a year and developed possible side effects last week. COLON CANCER SCREENING: Believes last colonoscopy was unremarkable in 2019 and recommended repeating in 5 years. At time of visit report is not available to review. Iliana denies a family history of IBD, colon cancer or colon polyps. 01/10/2024 Acid reflux (ICD-10 - K21.9) Will start Pepcid 40 mg at bedtime. She will follow up with her PCP regarding possible side effects of Fosamax. Due to having osteoporosis will not proceed with starting a PPI. Reviewed GERD diet and lifestyle modifications. She will take Pepcid for 2 to 3 months and follow-up with our office for a symptom update. If she continues to have symptoms on Pepcid we will proceed with an EGD. CHRONIC CONSTIPATION associated with MUCOUS IN STOOLS: H/O chronic constipation; in the past has tried/failed MiraLAX and Linzess 290 mcg/d. In November 2022 given samples of Trulance; took for 3 weeks and had no relief. Requested samples of Motegrity however our office was out. Over the past year has treated constipation with weekly Dulcolax. On Doculax is having 1-2 hard pebble-like to formed BMs/w associated with intermittent clear to white mucus mixed with stools. Denies hematochezia or melena, abdominal pain or cramping and denies bloating. ACID REFLUX: Following her last dose of Fosamax last Sunday01/04/24, been on Fosamax developed midepigastric burning radiating to her throat associated with regurgitation of acid causing a sour taste in her mouth. Took Tums once, had some relief however symptoms continue. Has She is on Fosamax for osteoporosis for over a year and developed possible side effects last week. COLON CANCER SCREENING: Believes last colonoscopy was unremarkable in 2019 and recommended repeating in 5 years. At time of visit report is not available to review. Iliana denies a family history of IBD, colon cancer or colon polyps. 03/17/2024 Localized swelling, mass and lump, neck (ICD-10 - R22.1) reports within the past month having a growth removed from her throat by Dr. Elliott Power in [place], [place] and pathology was negative. Denies dysphagia or odynophagia. Will reach out to her PCP for surgery report and pathology regarding her throat growth to be sent to our office for review and her records. 01/10/2024 Colon cancer screening (ICD-10 - Z12.11) Will sign a release form for her previous colonoscopy to be sent to our office for review and her records. If recommended to follow-up in 5 years she will be due for her colonoscopy in 2024. CHRONIC CONSTIPATION associated with MUCOUS IN STOOLS: H/O chronic constipation; in the past has tried/failed MiraLAX and Linzess 290 mcg/d. In November 2022 given samples of Trulance; took for 3 weeks and had no relief. Requested samples of Motegrity however our office was out. Over the past year has treated constipation with weekly Dulcolax. On Doculax is having 1-2 hard pebble-like to formed BMs/w associated with intermittent clear to white mucus mixed with stools. Denies hematochezia or melena, abdominal pain or cramping and denies bloating. ACID REFLUX: Following her last dose of Fosamax last Sunday01/04/24, been on Fosamax developed midepigastric burning radiating to her throat associated with regurgitation of acid causing a sour taste in her mouth. Took Tums once, had some relief however symptoms continue. Has She is on Fosamax for osteoporosis for over a year and developed possible side effects last week. COLON CANCER SCREENING: Believes last colonoscopy was unremarkable in 2019 and recommended repeating in 5 years. At time of visit report is not available to review. Iliana denies a family history of IBD, colon cancer or colon polyps. 01/10/2024 Other Iliana and Anupama verbalized clear understanding of plan, recommendations, and all questions were answered. She will follow up with our office with any GI concerns going forward. Kris will make a follow-up office visit in 3 to 4 months. CHRONIC CONSTIPATION associated with MUCOUS IN STOOLS: H/O chronic constipation; in the past has tried/failed MiraLAX and Linzess 290 mcg/d. In November 2022 given samples of Trulance; took for 3 weeks and had no relief. Requested samples of Motegrity however our office was out. Over the past year has treated constipation with weekly Dulcolax. On Doculax is having 1-2 hard pebble-like to formed BMs/w associated with intermittent clear to white mucus mixed with stools. Denies hematochezia or melena, abdominal pain or cramping and denies bloating. ACID REFLUX: Following her last dose of Fosamax last Sunday01/04/24, been on Fosamax developed midepigastric burning radiating to her throat associated with regurgitation of acid causing a sour taste in her mouth. Took Tums once, had some relief however symptoms continue. Has She is on Fosamax for osteoporosis for over a year and developed possible side effects last week. COLON CANCER SCREENING: Believes last colonoscopy was unremarkable in 2019 and recommended repeating in 5 years. At time of visit report is not available to review. Iliana denies a family history of IBD, colon cancer or colon polyps. 03/17/2024 Other Iliana and Anupama verbalized clear understanding of plan, recommendations, and all questions were answered. She will follow up with our office with any GI concerns going forward. Kris will make a follow-up office visit in 6 months to a year. Plan Of Treatment No Information Insurance Providers Payer Name Payer Address Payer Phone Subscriber Number Group Number Insured Name Patient Relationship to Insured Coverage Start Date Coverage End Date Medicare E2 [address] [address] [place] [address] [id number] Iliana Gallardo Self - patient is the insured [place] [employer] [place] [employer] [address] [place] [address] [id number] Iliana Gallardo Self - patient is the insured Medical (General) History Medical History History ICD Code GERD Hyperlipidemia Osteoporosis Surgical History Surgery Date(Month/Year) Colonoscopy 2019 Cholecystectomy Varicose Vein Removal Hysterectomy
--- OUTSIDE RECORDS SUMMARY | 2024-09-04 05:45 | XMS_ITS | Clinical Summary ---
Author Organization [facility] Address [address] [place] [address] Care Team Providers Care Ship Scraper Name Role Phone Unavailable Primary Care Provider Unavailabl e Social History Tobacco Use Types Packs/Day Years Used Date Smoking Tobacco: Never Assessed Comments Unknown Sex and Gender Information Value Date Recorded Sex Assigned at Not on file Legal Sex Female 7:42 AM CDT Gender Identity Not on file Sexual Orientation Not on file Plan of Treatment Health Maintenance Due Date Last Done Comments Colorectal Cancer Screening Colonoscopy (10 Years) 1955 Hepatitis C 10/06/1975 DTaP, Tdap and Td Vaccines ( 1 - Tdap) 1976 Mammogram Screening 1997 Pneumococcal Vaccine: 50+ Ye ars (1 of 1 - PCV) 10/06/2007 Zoster Vaccines (1 of 2) 10/06/2007 Dexa Scan (General) 2022 COVID-19 Vaccine ( - 2023-2 5 season) 2024 RSV Immunization or 60+ Years (1 - 1-dose 75+ series) 2032 Meningococcal B Vaccine Aged Out No l onger eligible based on patient's age to complete this topic Meningococcal Vaccine Aged Out No sary rd eligible based on patient's age to complete this topic RSV Immunizations Under 20 Months Aged Out No longer eligible based on patient's age to complete this topic
--- OUTSIDE RECORDS SUMMARY | 2024-09-04 05:45 | XMS_ITS ---
Author Organization [employer] [facility] Address [address] [place] [address] [address]. [address] [place] [address] Care Team Providers Care Metrology Engineer Name Role Phone Jamey Reid MD Primary Care Provider UnavailStef Davidson Unavailable [phone] Stephanie Burns Unavailable [phone] REASON FOR VISIT Schedule EGD Encounters Encounter Location Date Provider Diagnosis [facility], [address] [place] [address] 04/07/2024 Stephanie Burns Plan Of Treatment No Information Progress Notes * Iliana GALLARDO RDOB:1955 (68 yo F)Acc No.[id number]:04/07/2024 Patient: Iliana SUNG Kodi :1955 A ge:68 Y S ex:Female Address:[address] [place] [address], [address] * true * Date: Generated for Printi ng/Faxing/eTransmitting on: 0 09/04/2024 05:44 AM CDT
--- OUTSIDE RECORDS SUMMARY | 2024-09-04 05:45 | XMS_ITS | Encounter Summary ---
Author Organization [facility] Address [address] [facility] [place] [address] Care Team Providers Care Feeder Operator Automatic Name Role Phone Jamey Reid MD Primary Care Provider [phone] Encounter Details Date Type Department Care Team (Late st Contact Info) Description 05/02/2023 Lab Requisition [facility] - DermPath Lab [address] 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 Gender Identity Not on file Sexual Orientation Not on file documented as of this encounter Plan of Treatment Not on file documented as of this encounter Procedures Procedure Name Priority Date/Time Associated Diagnosis Comments DERMATOPATHOLOGY Routine 05/02/2023 2:10 PM [employer] documented in this encounter Results * DERMATOPATHOLOGY (05/02/2023 2:10 PM INS[employer]) Case Report Dermatopathology Report Case: [id number] Authorizing Provider: Nancy Kemp DO Collected: 05/02/2023 02:10 PM Ordering Location: [facility] DermPath Lab Received: 05/03/2023 01:11 PM Pathologist: Viri Burns MD Specimen: Skin, right lat LE 12:31 PM [employer] DERMATOPATHOLOGY LABORATORY Final Diagnosis Specimen A. SKIN, right lat LE: HYPERPLASTIC (HYPERTROPHIC) ACTINIC KERATOSIS (L57.0) 3 12:31 PM [employer] DERMATOPATHOLOGY LABORATORY Clinical History R/O NMSC 3 12:31 PM [facility] DERMATOPATHOLOGY LABORATORY Gross Description Specimen A: Received is one formalin filled container labeled with the patient's name and designated right lat LE. The specimen consists of a shave biopsy measuring 5x5x1 mm. Jar 0. 3 12:31 PM [facility] DERMATOPATHOLOGY LABORATORY Microscopic Description Specimen A. SKIN, right lat LE: There is hyperkeratosis alternating with parakeratosis. There is epidermal hyperplasia with disorderly maturation of keratinocytes with nuclear pleomorphism confined to the lower half of the epidermis. There is a lymphohistiocytic infiltrate within the dermis. 3 12:31 PM [facility] DERMATOPATHOLOGY LABORATORY Disclaimer An external and internal positive and negative controls are appropriate for the histochemical, immunohistochemical and immunofluorescence stain(s) in this case (if any), except where stated explicitly. The performance characteristics of the stain(s) cited in this report were developed and its performance characteristic determined by the Dermatopathology Laboratory at [facility], directed by Dr. James Kuo. These tests need not be, and therefore are not, approved by the [place] Food and Drug Administration. The tests are used for clinical purposes. Billing Codes Specimen Charges Stain Charges 64214 1 3 12:31 PM [facility] DERMATOPATHOLOGY LABORATORY Embedded Images 3 12:31 PM [facility] DERMATOPATHOLOGY LABORATORY Pathology/Cytolo gy TISSUE SPECIMEN FROM SKIN / Unknown 05/02/2023 2:10 PM [employer] 05/03/2023 1:11 PM [facility] us Nancy Kemp DO LAB - PATHOLOGY/CYTOLOGY ORDERABLES Final Result DERMATOPATHOLOGY LABORATORY [facility] - Department of Dermatology [facility] [address] [place] [address], [address] [phone] documented in this encounter Visit Diagnoses Not on filedocumented in this encounter Care Teams Feeder Operator Automatic Relationship Specialty Start Date End Date Jamey Reid MD [address] [place] [address] PCP - General 03/23/21 documented as of this encounter
[2024-09-04 05:47] VITALS: BP 129/68; PULSE 76; RESP 22; TEMP 36.2; O2SAT 100
--- NOTE | 2024-09-04 06:01 | ED.GENADULT ---
HPI - General Adult General Chief complaint: Back Pain/Injury <Oscar Blackmon MD - Last Filed: 09/04/24 06:47> Stated complaint: pinched nerve right lower back <Oscar Blackmon MD - Last Filed: 09/04/24 06:47> Time Seen by Provider: 09/04/24 05:48 <Oscar Blackmon MD - Last Filed: 09/04/24 06:47> History of Present Illness HPI narrative: This is a 68-year-old female presenting ED with chief complaint of back pain. Patient has been having pain in the right lower back for the last week and half. However yesterday became significantly worse. Now hurts on any movement of her back or legs. Does a sharp pain. It does not radiate down her leg. 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 She has not taken anything for pain. There was no trauma, history of IV drug abuse, cancer or fevers. She denies difficulty urinating, bowel incontinence saddle anesthesia or lower extremity weakness. <Oscar Blackmon MD - Last Filed: 09/04/24 06:47> Related Data Home medications: Home Medications ?Medication ?Instructions ?Recorded ?Confirmed ?Last Taken ?Type Bifidobacterium infantis 4 mg 4 mg PO DAILY 03/04/20 09/28/21 03/14/20 History capsule (Align (B.infantis)) fluticasone propionate 50 50 mcg intranasal DAILY PRN 03/04/20 09/28/21 03/14/20 History mcg/actuation nasal Congestion spray,suspension multivitamin 1 tablet PO DAILY 03/04/20 09/28/21 03/14/20 History alendronate 10 mg tablet 10 mg PO WEEKLY 09/28/21 09/28/21 Unknown History omega-3 fatty acids 500 mg capsule 500 mg PO TID 09/28/21 09/28/21 Unknown History <Oscar Blackmon MD - Last Filed: 09/04/24 06:47> Allergies/adverse reactions: Allergies Allergy/AdvReac Type Severity Reaction Status Date / Time morphine Allergy Unknown Nausea and Verified 09/28/21 14:30 Vomiting sulfanilamide Allergy Unknown Rash Verified 09/28/21 14:30 Penicillins Allergy Rash Verified 09/28/21 14:30 Sulfa (Sulfonamide AdvReac Unknown NAUSEA/VOMI Verified 09/28/21 14:30 Antibiotics) TING <Oscar Blackmon MD - Last Filed: 09/04/24 06:47> [facility] Past Medical History Medical History: Medical History (Updated 09/04/24 @ 06:23 by Oscar Blackmon MD) Family hx of colon cancer Irritable bowel syndrome with constipation <Oscar Blackmon MD - Last Filed: 09/04/24 06:47> Family History Family History: Family History (Reviewed 09/28/21 @ 14:32 by Shaila Pguh [facility]) Father Hypertension Family history of Parkinson's disease Mother Carcinoma of colon Family history of diabetes mellitus in first degree relative Family history of malignant neoplasm of uterus Sibling Family history of heart disease in male family member before age 55 Other Family history of allergic disorder <Ocsar Blackmon MD - Last Filed: 09/04/24 06:47> Social History Social History: Social History (Reviewed 09/28/21 @ 14:32 by Shaila Pugh [facility]) Smoking packs per day: 0.5 Smoking cigarettes per day: 10.0 Years smoked: 30 Smoking pack-years: 15.00 Smoking status: Former smoker Tobacco type: cigarettes Alcohol intake: current Drinks per week: 7 Living arrangements: alone Gender identity (if verbalized by the patient): Female Spiritual care concerns: No <Oscar Blackmon MD - Last Filed: 09/04/24 06:47> Exam Narrative: APPEARANCE: No apparent distress. Head: atraumatic. EYES: EOMI, NOSE: Atraumatic NECK/BACK: No midline spinal tenderness, tenderness over the right paralumbar muscles RESPIRATORY: No increased rate of breathing CTAB CARDIOVASCULAR: RRR, ABDOMINAL: Non-distended soft nontender no CVA tenderness MUSCULOSKELETAl: No obvious deformities NEURO: Alert. Moving 4/4 extremities SKIN:: Warm, dry. Normal color PSYCHIATRIC: Normal affect <Oscar Blackmon MD - Last Filed: 09/04/24 06:47> Course Vital Signs Vital signs: Vital Signs Temperature 36.2 C L 09/04/24 05:47 Pulse Rate 76 09/04/24 05:47 Respiratory Rate 22 H 09/04/24 05:47 Blood Pressure 129/68 09/04/24 05:47 Pulse Oximetry 100 09/04/24 05:47 Temperature 36.2 C L 09/04/24 05:47 Pulse Rate 76 09/04/24 05:47 Respiratory Rate 22 H 09/04/24 05:47 Blood Pressure 129/68 09/04/24 05:47 Pulse Oximetry 100 09/04/24 05:47 <Oscar Blackmon MD - Last Filed: 09/04/24 06:47> Vital Signs Temperature 36.2 C L 09/04/24 05:47 Pulse Rate 76 09/04/24 05:47 Respiratory Rate 22 H 09/04/24 05:47 Blood Pressure 129/68 09/04/24 05:47 Pulse Oximetry 100 09/04/24 05:47 Temperature 36.2 C L 09/04/24 05:47 Pulse Rate 76 09/04/24 05:47 Respiratory Rate 22 H 09/04/24 05:47 Blood Pressure 129/68 09/04/24 05:47 Pulse Oximetry 100 09/04/24 05:47 <Pato Isaac MD - Last Filed: 09/04/24 07:25> Medical Decision Making MDM Narrative Medical decision making narrative: -Course: 68-year-old female presenting with lower back pain. Imaging negative. History and physical most consistent with musculoskeletal back pain. Treated with muscle relaxers, NSAIDs, steroids and lidocaine patch. Condition improved and the patient is able to ambulate. She will be discharged with prescriptions for Motrin Tylenol Robaxin. Given return precautions. -DDX includes but is not limited to: Muscle strain, muscle spasm, bony injury, neoplasm, infarction, kidney stone <Oscar Blackmon MD - Last Filed: 09/04/24 06:47> Vital Signs Vital Signs: Vital Signs Temperature 36.2 C L 09/04/24 05:47 Pulse Rate 76 09/04/24 05:47 Respiratory Rate 22 H 09/04/24 05:47 Blood Pressure 129/68 09/04/24 05:47 Pulse Oximetry 100 09/04/24 05:47 Temperature 36.2 C L 09/04/24 05:47 Pulse Rate 76 09/04/24 05:47 Respiratory Rate 22 H 09/04/24 05:47 Blood Pressure 129/68 09/04/24 05:47 Pulse Oximetry 100 09/04/24 05:47 <Oscar Blackmon MD - Last Filed: 09/04/24 06:47> Vital Signs Temperature 36.2 C L 09/04/24 05:47 Pulse Rate 76 09/04/24 05:47 Respiratory Rate 22 H 09/04/24 05:47 Blood Pressure 129/68 09/04/24 05:47 Pulse Oximetry 100 09/04/24 05:47 Temperature 36.2 C L 09/04/24 05:47 Pulse Rate 76 09/04/24 05:47 Respiratory Rate 22 H 09/04/24 05:47 Blood Pressure 129/68 09/04/24 05:47 Pulse Oximetry 100 09/04/24 05:47 <Pato Isaac MD - Last Filed: 09/04/24 07:25> Imaging Data Radiologist's impression: Impressions Lumbar Spine CT 09/04/24 06:42 Impression: No acute abnormality. Minimal degenerative change. Pelvis X-Ray 09/04/24 06:51 Impression: No significant abnormality is seen. <Pato Isaac MD - Last Filed: 09/04/24 07:25> Discharge Plan Discharge Clinical Impression: Back pain <Oscar Blackmon MD - Last Filed: 09/04/24 06:47> Patient Disposition: Home <Oscar Blackmon MD - Last Filed: 09/04/24 06:47> Condition: Stable <Oscar Blackmon MD - Last Filed: 09/04/24 06:47> Instructions: Antibiotic Form, Acute Low Back Pain (ED) <Oscar Blackmon MD - Last Filed: 09/04/24 06:47> Additional Instructions: You were seen in the emergency department for lower back pain. Please take the prescribed medications as directed for pain. Please follow-up with your primary care physician for further management. Return to the ED if he develops severe back pain, weakness to her legs, inability to urinate or any new or worsening symptoms. <Oscar Blackmon MD - Last Filed: 09/04/24 06:47> Patient Language: Yi <Oscar Blackmon MD - Last Filed: 09/04/24 06:47> Prescriptions: New ibuprofen 800 mg tablet 800 mg PO TID PRN (Reason: pain) 7 Days Qty: 21 0RF acetaminophen 500 mg tablet 1,000 mg PO TID PRN (Reason: jeanne) 7 Days Qty: 42 0RF lidocaine 5 % adhesive patch,medicated 1 patch topical DAILY Qty: 15 0RF Rx Instructions: leave on most painful area for up to 12 hrs methocarbamol 750 mg tablet 1,500 mg PO TID Qty: 42 0RF No Action omega-3 fatty acids 500 mg capsule 500 mg PO TID alendronate 10 mg tablet 10 mg PO WEEKLY fluticasone propionate 50 mcg/actuation spray,suspension 50 mcg INTRANASAL DAILY PRN (Reason: Congestion) multivitamin Tablet 1 tablet PO DAILY Align (B.infantis) 4 mg Capsule 4 mg PO DAILY <Oscar Blackmon MD - Last Filed: 09/04/24 06:47> Follow-up/Referrals: Jeanette,Jamey Pompa MD [Primary Care Provider] - <Oscar Blackmon MD - Last Filed: 09/04/24 06:47>
[2024-09-04] MEDS: KETOROLAC 30 MG/ML VIAL (*BKC) IM (06:07)
[2024-09-04] MEDS: diazePAM INJ (*CRX) 10 MG/2 ML SYRINGE 5 MG IM (06:07)
[2024-09-04] MEDS: ACETAMINOPHEN 500 MG TABLET 1000 MG PO (06:08)
[2024-09-04] MEDS: dexAMETHasone SOD PHOS INJ 10 MG/ML 1 ML VIAL IV PUSH (06:08)
[2024-09-04] MEDS: LIDOCAINE 5% PATCH 1 PATCH TRANSDERM (06:08)
--- OUTSIDE RECORDS SUMMARY | 2024-09-04 06:17 | XMS_ITS | Clinical Summary ---
Author Organization [facility] Address [address] [place] [address] Care Team Providers Care Sugar Mixer Name Role Phone Jamey Reid MD Primary Care Provider [phone] Source Comments [facility],non-owned Affiliates and Associated Physician Practices is amultiple site organization consisting of ambulatory clinics and hospital sitesin [place], [place], [place] and [place]. This disclosure is being madepursuant to the Care Everywhere program and may not contain all information available regarding this patient. Last updated 18.[facility] Social History Tobacco Use Types Packs/Day Years Used Date Smoking Tobacco: Never Assessed Comments Unknown Sex and Gender Information Value Date Recorded Sex Assigned at Not on file Legal Sex Female 9:45 AM COMPLIANCE COORDINATOR Gender Identity Not on file Sexual Orientation [...] age to complete this topic Insurance MEDIC[place] [address] Care Teams Sugar Mixer Relationship Specialty Start Date End Date Jamey Reid MD [address] [place] [id number] PCP - General 03/23/21
--- OUTSIDE RECORDS SUMMARY | 2024-09-04 06:17 | XMS_ITS | Clinical Summary ---
Author Organization [facility] Address [address] [place] [address] Care Team Providers Care Partner Alliance Manager Name Role Phone Unavailable Primary Care Provider [...]
--- OUTSIDE RECORDS SUMMARY | 2024-09-04 06:17 | XMS_ITS | Encounter Summary ---
Author Organization [facility] Address [address] [place] [address] Care Team Providers Care Cyber Engineer Name Role Phone Jamey Reid MD Primary Care Provider [phone] Encounter Details Date Type Department Care Team (Late st Contact Info) Description 05/02/2023 Lab Requisition [facility] - DermPath Lab [address] [facility] [place] [address] Nancy Kemp DO [address] [facility] [address] [place] [address] Social History Tobacco Use Types Packs/Day Years Used Date Smoking Tobacco: Never Assessed Comments Unknown Sex and Gender Information Value Date Recorded Sex Assigned at Not on file Legal Sex Female 9:45 AM IMPREGNATION OPERATOR Gender Identity Not on file Sexual Orientation Not on file documented as of this encounter Plan of Treatment Not on file documented as of this encounter Procedures Procedure Name Priority Date/Time Associated Diagnosis Comments DERMATOPATHOLOGY Routine 05/02/2023 2:10 PM IMPREGNATION OPERATOR documented in this encounter Results * DERMATOPATHOLOGY (05/02/2023 2:10 PM IMPREGNATION OPERATOR) Case Report Dermatopathology Report Case: [id number] Authorizing Provider: Nancy Kemp DO Collected: 05/02/2023 02:10 PM Ordering Location: [facility] DermPath Lab Received: 05/03/2023 01:11 PM Pathologist: Viri Burns MD Specimen: Skin, right lat LE 12:31 PM IMPREGNATION OPERATOR DERMATOPATHOLOGY LABORATORY Final Diagnosis Specimen A. SKIN, right lat LE: HYPERPLASTIC (HYPERTROPHIC) ACTINIC KERATOSIS (L57.0) 3 12:31 PM IMPREGNATION OPERATOR DERMATOPATHOLOGY LABORATORY Clinical History R/O NMSC 3 12:31 PM [facility] DERMATOPATHOLOGY LABORATORY Gross Description Specimen A: Received is one formalin filled container labeled with the patient's name and designated right lat LE. The specimen consists of a shave biopsy measuring 5x5x1 mm. Jar 0. 3 12:31 PM [facility] DERMATOPATHOLOGY LABORATORY Microscopic Description Specimen A. SKIN, right lat LE: There is hyperkeratosis alternating with parakeratosis. There is epidermal hyperplasia with disorderly maturation of keratinocytes with nuclear pleomorphism confined to the lower half of the epidermis. There is a lymphohistiocytic infiltrate within the dermis. 3 12:31 PM [facility] DERMATOPATHOLOGY LABORATORY Disclaimer An external and internal positive and negative controls are appropriate for the histochemical, immunohistochemical and immunofluorescence stain(s) in this case (if any), except where stated explicitly. The performance characteristics of the stain(s) cited in this report were developed and its performance characteristic determined by the Dermatopathology Laboratory at [facility], directed by Dr. James uKo. These tests need not be, and therefore are not, approved by the [place] Food and Drug Administration. The tests are used for clinical purposes. Billing Codes Specimen Charges Stain Charges 91011 1 3 12:31 PM [facility] DERMATOPATHOLOGY LABORATORY Embedded Images 3 12:31 PM [facility] DERMATOPATHOLOGY LABORATORY Pathology/Cytolo gy TISSUE SPECIMEN FROM SKIN / Unknown 05/02/2023 2:10 PM IMPREGNATION OPERATOR 05/03/2023 1:11 PM [facility] us Nancy Kemp DO LAB - PATHOLOGY/CYTOLOGY ORDERABLES Final Result DERMATOPATHOLOGY LABORATORY [facility] - Department of Dermatology [facility] Medicine [address] [place] [address], [address] [phone] documented in this encounter Visit Diagnoses Not on filedocumented in this encounter Care Teams Cyber Engineer Relationship Specialty Start Date End Date Jamey Reid MD [address] [place] [address] PCP - General 03/23/21 documented as of this encounter
[2024-09-04 07:26] VITALS: BP 96/65; PULSE 70; RESP 18; O2SAT 99
== END 2024-09-04 07:58 | disposition home or self-care (01) ==
PROVIDERS: Emergency Provider Emergency Medicine; PCP Family Medicine
DX: M54.50 Low back pain, unspecified (principal); Z87.891 Personal history of nicotine dependence
CPT/HCPCS: 72131; 72170; 96372; 96374; 99284; A9270; J1100; J1885; J3360